=== PATIENT | male | born 1945 | race Caucasian/White ===

== ENCOUNTER 2016-07-05 07:40 | Inpatient (IN) | payer OTHER, MEDICARE ==
[~2016-07-05] VITALS: Ht 180.3 cm; Wt 113.0 kg
[2016-07-05] VITALS (7 sets, daily range): BP systolic 96–145; BP diastolic 56–67
[2016-07-05 09:14] LABS: EOSINOPHIL (%) 1.2 % (0-5); EOSINOPHIL COUNT 0.2 K/uL (0-0.3); HEMATOCRIT 44.7 % (38.0-50.0); IMMATURE GRANULOCYTE (%) 0.3 % (0.0-0.7); IMMATURE GRANULOCYTE COUNT 0.4 K/uL; LYMPHOCYTE COUNT 0.9 K/uL (1.0-2.8); MCH 29.3 PG (29.0-34.0); MCHC 34.2 G/DL (30.0-36.0); MCV 85.5 FL (86-99); MONOCYTE (%) 4.1 % (3-12); MONOCYTE COUNT 0.5 K/uL (0-0.8); NEUTROPHIL COUNT 11.1 K/uL (1.8-6.4); PLATELET COUNT 227 K/uL (156-360); RBC DIS.WIDTH-CV 13.2 % (11.8-14.6); RBC DIS.WIDTH-SD 41.1 % (39-53); RED BLOOD COUNT 5.23 M/uL (4.00-5.50); WHITE BLOOD COUNT 12.8 K/uL (4.1-10.2)
[2016-07-05 09:23] LABS: CHLORIDE 103 mEq/L (99-109); POTASSIUM 4.7 mEq/L (3.7-5.4); PROTHROMBIN TIME 10.5 (9.2-11.2); SODIUM 136 mEq/L (136-147)
[2016-07-05 09:25] LABS: GLUCOSE 204 mg/dL (70-99)
[2016-07-05 09:26] LABS: ANION GAP 11 MEQ/L (2-14)
[2016-07-05 09:28] LABS: GFR ESTIMATE (CALCULATED) > 59 mL/min/
[2016-07-05 09:29] LABS: UREA NITROGEN (BUN) 17 mg/dL (9-23)
[2016-07-05] MEDS ORDERED: CRESTOR20 MG PO (10:05)
[2016-07-05] MEDS ORDERED: PLAVIX75 MG PO (10:05)
[2016-07-05] MEDS ORDERED: ZESTRIL10 MG PO (10:05)
[2016-07-05] MEDS ORDERED: METFORMIN HCL500 MG PO (10:06)
[2016-07-05] MEDS ORDERED: ZOLOFT100 MG PO (10:07)
[2016-07-05] MEDS ORDERED: TAMSULOSIN HCL0.4 MG PO (10:07)
[2016-07-05] MEDS ORDERED: LOPRESSOR25 MG PO (10:08)
[2016-07-05 17:00] LABS: POINT-OF-CARE METER ID UU14149397
[2016-07-05 22:42] LABS: POINT-OF-CARE METER ID UU14149397
[2016-07-06 04:13] VITALS: BP 120/56
[2016-07-06 08:07] VITALS: BP 134/60
[2016-07-06 09:09] LABS: MCV 89.1 FL (86-99)
[2016-07-06 09:17] LABS: ANION GAP 9 MEQ/L (2-14); CHLORIDE 101 MEQ/L (99-109); GFR ESTIMATE (CALCULATED) > 59 mL/min/; GLUCOSE 163 mg/dL (70-99); POTASSIUM 4.4 MEQ/L (3.7-5.4); SAMPLE HEMOLYSIS CHECK 0; SAMPLE ICTERIC CHECK 0; SAMPLE LIPEMIA CHECK 0; SODIUM 135 MEQ/L (136-147); UREA NITROGEN (BUN) 12 mg/dL (9-23)
[2016-07-06 11:48] VITALS: BP 103/57
[2016-07-06 12:37] LABS: POINT-OF-CARE METER ID UU14149397
[2016-07-06 16:09] VITALS: BP 108/54
[2016-07-06 17:10] LABS: POINT-OF-CARE METER ID UU14149397
[2016-07-06 19:26] VITALS: BP 132/62
[2016-07-06 22:03] LABS: POINT-OF-CARE METER ID UU14149397
[2016-07-06 23:37] VITALS: BP 117/55
[2016-07-07 05:00] VITALS: BP 129/60
[2016-07-07 06:08] LABS: HEMATOCRIT 38.5 % (38.0-50.0); MCV 88.9 FL (86-99)
[2016-07-07 06:53] LABS: POINT-OF-CARE METER ID UU14149397
[2016-07-07 07:47] VITALS: BP 129/60
[2016-07-07] MEDS ORDERED: OXAYDO5 MG PO (08:53)
== END 2016-07-07 10:15 | disposition home or self-care (01) | DRG 494 ==
LOC: EME → EDBD 07:40 → 3EAST 10:54 → EDOF 10:54 → 3EAST 14:18
PROVIDERS: Emergency Medicine; Orthopaedic Surgery; Physician Assistant Surgical
PROC: 0QSG06Z Reposition Right Tibia with Intramedullary Internal Fixation Device, Open Approach (ICD-10-PCS; principal; 2016-07-05)
DX: S82.251A Displaced comminuted fracture of shaft of right tibia, initial encounter for closed fracture (principal); S82.451A Displaced comminuted fracture of shaft of right fibula, initial encounter for closed fracture; W00.0XXA Fall on same level due to ice and snow, initial encounter; Y92.008 Other place in unspecified non-institutional (private) residence as the place of occurrence of the external cause; I10 Essential (primary) hypertension; I25.10 Atherosclerotic heart disease of native coronary artery without angina pectoris; I25.2 Old myocardial infarction; E11.65 Type 2 diabetes mellitus with hyperglycemia; E78.00 Pure hypercholesterolemia, unspecified; F41.9 Anxiety disorder, unspecified; Z79.02 Long term (current) use of antithrombotics/antiplatelets; Z79.84 Long term (current) use of oral hypoglycemic drugs; Z87.891 Personal history of nicotine dependence
CPT/HCPCS: 70450; 71010; 73590; 73610; 76000; 80048; 82948; 85014; 85018; 85025; 85610; 93005; 94799; 99281; 99285; C1713; J0690; J1170; J1815; J2250; J2270; J2405; J2765; J3010; J7030; J7120